=== PATIENT | male | born 1985 | race Caucasian/White ===

== ENCOUNTER 2024-11-18 04:40 | Emergency (ER) | payer OTHER, SELFPAY ==
[2024-11-18 04:41] VITALS: BP 150/101; BP 170/94; PULSE 93; PULSE 95; RESP 15; RESP 16; TEMP 36.6; O2SAT 96; BMI 33.0
--- NOTE | 2024-11-18 05:04 | EKG12_ITS ---
Test Reason : CP Blood Pressure : */* mmHG Vent. Rate : 97 BPM Atrial Rate : 97 BPM P-R Int : 124 ms QRS Dur : 88 ms QT Int : 350 ms P-R-T Axes : 45 43 24 degrees QTcB Int : 444 ms Normal sinus rhythm Normal ECG Confirmed by Eduardo Tyson ([id number]), commissioning editor ALIYA GAMBLE ([id number]) on 11/24/2024 11:28:01 AM Referred By: WHITLEY Confirmed By: Eduardo Tyson
--- NOTE | 2024-11-18 05:13 | RAD_ITS ---
PROCEDURE: CHEST PA AND LATERAL 11/18/2024 REASON FOR EXAM: CHEST PAIN TECHNIQUE: Frontal and lateral views of the chest. COMPARISON: None available FINDINGS: Patchy airspace opacity at the left mid to lower lung with associated small effusion. The right lung appears clear. The cardiac and mediastinal contours appear within limits. Visualized osseous structures appear within limits. RAD/Chest PA and Lateral IMPRESSION: Patchy airspace opacity at the left mid to lower lung with associated small eff usion. May be inflammatory or infectious, clinically correlate Reading Location: [id number]
[2024-11-18 05:21] LABS: Absolute Lymphocyte Count 2.08 X10^3/uL (0.83-4.51); Absolute Neutrophil Count 4.9 X10^3/uL (2.0-7.7); Basophil# 0.09 X10^3/uL; Eosinophil# 1.01 X10^3/uL; Eosinophils% 11.6 % (0-5); Hematocrit 45.4 % (40-54); Hemoglobin 15.5 g/dL (13.0-16.5); Lymphocyte # 2.08 X10^3/ul (0.83-4.51); Lymphocyte % 23.9 % (19-41); Mean Corp Hgb Conc 34.1 g/dL (32-36); Mean Corpuscular Hgb 27.6 pg (27.0-32.0); Mean Corpuscular Volume 80.8 fL (80-94); Mean Platelet Vol. 8.5 fl (6.2-12.0); Monocyte# 0.59 X10^3/uL; Monocyte% 6.8 % (0-10); NRBC Flagged by Analyzer 0 % (0-5); Neutrophil # 4.91 X10^3/uL (2.7-7.7); Neutrophil % 56.2 % (47-70); Platelet Count 353 K/mm3 (150-450); RBC Distribution Width CV 12.6 % (11.6-14.6); RBC Distribution Width SD 36.9 fl (35.1-43.9); Red Blood Count 5.62 M/mm3 (4.6-6.2); White Blood Count 8.7 K/mm3 (4.4-11.0)
[2024-11-18 05:39] LABS: AST(SGOT) 16 U/L (<=37); Alanine Aminotransfer ALT/SGPT 17 U/L (<=46); Albumin, Serum 3.9 g/dL (3.5-5.0); Alkaline Phosphatase 68 U/L (40-129); Anion Gap 11 (5-15); BUN 19 mg/dL (4-19); BUN/Creat Ratio 22.5 RATIO (10-20); Bilirubin, Direct 0.18 mg/dL (0.00-0.30); Calcium,Total 8.8 mg/dL (7.6-11.0); Carbon Dioxide 24.6 mmol/L (21.0-32.0); Chloride 103 mmol/L (98-108); Creatinine, Serum 0.86 mg/dL (0.70-1.20); EST Glomerular Filtration Rate 112 (>60); Globulin 2.9 g/dL (2.2-4.2); Glucose 108 mg/dL (70-99); Lipase 27 U/L (13-75); Potassium 3.7 mmol/L (3.3-5.1); Protein, Total 6.8 g/dL (5.9-8.4); Sodium Level 138 mmol/L (133-145); Total Bilirubin 0.38 mg/dL (0.00-1.30); Troponin T High Sensitivity 7 ng/L (<=22)
[2024-11-18 05:41] VITALS: BP 137/98; PULSE 87; RESP 18; O2SAT 97
--- NOTE | 2024-11-18 05:56 | CT_ITS ---
PROCEDURE: CTA CHEST W/WO CONTRAST 11/18/2024 REASON FOR EXAM: CHEST PAIN WITH ELEVATED D-DIMER TECHNIQUE: CTA imaging of the chest with intravenous contrast. Multiplanar and multisequence images were obtained. Coronal and sagittal MIP images CONTRAST: 85 cc Isovue 370 IV One or more dose reduction techniques were used (e.g., Automated exposure control, adjustment of the mA and/or kV according to patient size, use of iterative reconstruction technique). RADIATION DOSE SUMMARY: CTDlvol: 15.78 mGy DLP: 489.52 mGycm COMPARISON: None available FINDINGS: Motion artifact. No evidence of filling defect to suggest pulmonary embolism. Thoracic aorta appears within limits. No pericardial or right pleural effusion. No adenopathy identified. The central airways appear patent. Patchy bandlike areas of parenchymal opacity and ground-glass opacity left lung with a lower zone predominance may be inflammatory or infectious. A moderate left pleural effusion is present. The right lung appears clear. Limited images of the upper abdomen appear within limits. Visualized osseous structures appear within limits. CT/CTA Chest W/WO Contrast IMPRESSION: Motion artifact. No evidence of filling defect to suggest pulmonary embolism. Patchy bandlike areas of parenchymal opacity and ground-glass opacity left lung with a lower zone predominance may be inflammatory or infectious. A moderate left pleural effusion is present. Reading Location: [id number]
[2024-11-18 06:00] VITALS: BP 139/98; PULSE 90; RESP 16; O2SAT 94
[2024-11-18 06:10] LABS: Prothrombin Time (Protime)PT. 12.9 SECONDS (11.7-14.9)
[2024-11-18 06:11] LABS: Partial Thromboplast Time 28.7 Seconds (24.1-36.2)
[2024-11-18 07:00] VITALS: BP 134/85; PULSE 92; RESP 16; O2SAT 94
--- NOTE | 2024-11-18 07:04 | EDS_ITS ---
HPI History of Present Illness Chief Complaint: Chest Pain Informant: patient and spouse/S.O. Narrative Narrative: Patient is a 39-year-old male who reports no significant past medical history. He states starting about 2 weeks ago he developed mild congestion and cough. He reports that the cough has slightly improved but has not completely resolved. He states it does not make him feel short of breath or keep him from performing his daily activities. He states however in the last 5 to 7 days he has now noticed a vague left-sided chest discomfort. He states that during the day when he is active and occupied with daily activities he does not notice the symptoms. However in the last 24 hours he feels that the symptoms have become more severe and persistent and with concern this could be potential cardiac or lung pathology he presents for evaluation [facility] Medical History no medical history no medical history Home Medications ?Medication ?Instructions ?Recorded ?Last Taken ?Type azithromycin 250 mg tablet See Rx Instructions PO .COM PLEX #6 11/18/24 Unknown Rx (Zithromax Z-Clint) tabs doxycycline hyclate 100 mg capsule 100 mg PO BID 10 da ys #20 caps 11/18/24 Unknown Rx Allergy/AdvReac Type Severity Reaction Status Date / Time No Known Allergies Allergy Verified 11/18/24 04:41 Family History (Updated 11/18/24 @ 04:53 by Caitlin Priest) Father A-fib Brother A-fib Social History (Updated 11/18/24 @ 04:53 by Caitlin Priest) household members: spouse and children housing: house number of children: 4 Smoking Status: Never smoker ROS ROS ED Constitutional Constitutional ED: Denies chills or fever(s) Eyes Eyes: Denies blurry vision or change in vision ENT ENT ED: Denies rhinorrhea or sore throat Cardiovascular Cardiovascular: Reports chest pain; Denies palpitations or racing heartbeat Respiratory/Chest Respiratory/Chest: Reports cough; Denies dyspnea Gastrointestinal Gastrointestinal: Denies abdominal pain, diarrhea, nausea or vomiting Genitourinary Genitourinary ED: Denies dysuria or hematuria Musculoskeletal Musculoskeletal: Reports back pain Integumentary Denies rash Neurologic Neurologic: Denies headache(s) Hematologic/Lymphatic Hematologic/Lymphatic: Denies easy bleeding or easy bruising EXAM Physical Exam Const Vital Signs: 11/18/24 04:41 11/18/24 04:41 11/18/24 04:49 Temperature 97.8 F Temperature Source Oral Pulse Rate 95 93 Respiratory Rate 15 16 Respiratory Effort Non-Labored Blood Pressure 170/94 H 150/101 H Blood Pressure Mean 119 117 Pulse Ox 96 96 Oxygen Delivery Method Room Air Room Air 11/18/24 05:41 11/18/24 06:00 Temperature Temperature Source Pulse Rate 87 90 Respiratory Rate 18 16 Respiratory Effort Blood Pressure 137/98 H 139/98 H Blood Pressure Mean 111 111 Pulse Ox 97 94 Oxygen Delivery Method Room Air Room Air Positive well nourished and well developed General Appearance ED: well developed; Negative for pallor HEENT HEENT Narrative: Normocephalic atraumatic No tongue or lip swelling no oral lesions no airway edema or compromise Eyes PERRL and EOMs intact bilaterally General Eye ED: Negative for scleral icterus Neck supple and no JVD Chest Wall Chest Narrative: There is mild reproducible left chest wall pain with palpation No bony deformity or subcutaneous emphysema noted No overlying soft tissue changes to suggest trauma or infection Resp normal respiratory effort Resp Narrative: Breath sounds are diminished in the left lower lobe. There is rhonchi present at this site as well No nasal flaring retractions tachypnea or accessory muscle use Cardio regular rate and regular rhythm Rate: other Other Details: Heart is regular rate and rhythm without murmurs rubs or gallops Radial and carotid pulses are equal and symmetric GI normal to inspection, nondistended, normoactive bowel sounds, non-tender, non- distended and no masses Auscultation: normoactive bowel sounds Palpation: soft Back/Spine no CVA tenderness Extremity normal to inspection Extremity Narrative: No asymmetric edema no pitting edema negative Homans' sign bilaterally Neuro oriented x3, CN's II-XII intact bilaterally and no sensory deficits noted Sensorium / Orientation: alert Motor Exam: strength 5/5 throughout Psych mental status grossly normal Skin no rashes or lesions noted and no wounds General Skin Exam: Negative for jaundice or pallor MDM MDM MDM Narrative Medical decision making narrative: Patient arrived to ER hypertensive otherwise with stable vitals. He reported he had cough for roughly 2 weeks with now increasing left-sided chest pain. Symptoms are concerning for developing pneumonia versus pneumothorax versus pleural effusion versus atypical presentation for ACS. Secondary to this basic blood work was obtained. White count is normal there is no left shift. His initial and delta troponin are normal as well with no clinically significant change to the delta troponin going against ACS. EKG also shows no signs of ischemia or cardiac dysrhythmia. As patient does report some increased pain with inspiration I did elect to perform a D-dimer secondary to concern for PE versus dissection. The D-dimer was elevated so CTA was obtained. The CTA re vealed a pleural effusion with surrounding findings concerning for infection versus inflammation. As the patient states his symptoms began with cough roughly 2 weeks ago I do have concern that this is a infection. Therefore he will be placed on antibiotics. As a workup does not show signs of PE or dissection or pneumothorax and workup also does not indicate his chest discomfort is related to ACS I do not feel there is need for further workup. As he is not hypoxic or in respiratory distress as he does not have findings of systemic infection such as leukocytosis or left shift fever or hypotension I do not feel he warrants inpatient evaluation for these findings on the chest x- ray/CT scan. Therefore he will be prescribed antibiotics and can follow-up with pulmonology to discuss need for potential thoracentesis or bronchoscopy to further evaluate his symptoms if they do not resolve with antibiotic treatment. This plan of care was discussed with the patient who is agreeable to it and as vitals have improved and he remains in no acute respiratory stress is otherwise safe for discharge History & Record Review Discussion w/independent historian: Patient and Significant other Lab Data Attestation: I reviewed the patient's lab results. Labs: Laboratory Results - last 24 hr 11/18/24 05:00 WBC 8.7 RBC 5.62 Hgb 15.5 Hct 45.4 MCV 80.8 MCH 27.6 MCHC 34.1 RDW Std Deviation 36.9 RDW Coeff of Javier 12.6 Plt Count 353 MPV 8.5 Immature Gran % (Auto) 0.500 Neut % (Auto) 56.2 Lymph % (Auto) 23.9 Bourbon % (Auto) 6.8 Eos % (Auto) 11.6 H Baso % (Auto) 1.0 Absolute Neuts (auto) 4.9 Absolute Lymphs (auto) 2.08 Nucleated RBC % 0 PT 12.9 INR 1.0 APTT 28.7 D-Dimer Quant (PE/DVT) 1.50 H* Sodium 138 Potassium 3.7 Chloride 103 Carbon Dioxide 24.6 Anion Gap 11 BUN 19 Creatinine 0.86 Estim Creat Clear Calc 136.80 Est GFR (MDRD) Non-Af 112 BUN/Creatinine Ratio 22.5 H Glucose 108 H Calcium 8.8 Total Bilirubin 0.38 Direct Bilirubin 0.18 AST 16 ALT 17 Alkaline Phosphatase 68 Troponin T High Sens 7 Total Protein 6.8 Albumin 3.9 Globulin 2.9 Lipase 27 Radiography Diagnostic Testing: Clinical Impression(s) from Imaging Studies Chest X-Ray 11/18/24 05:13 IMPRESSION: Patchy airspace opacity at the left mid to lower lung with associated small effusion. May be inflammatory or infectious, clinically correlate Reading Location: [facility] Chest CTA 11/18/24 05:56 IMPRESSION: Motion artifact. No evidence of filling defect to suggest pulmonary embolism. Patchy bandlike areas of parenchymal opacity and ground-glass opacity left lung with a lower zone predominance may be inflammatory or infectious. A moderate left pleural effusion is present. Reading Location: [facility] Chest x-ray is interpreted by the emergency medicine physician reveals opacity in the left lower lung concerning for infection Discharge Plan Triage Chief Complaint: Chest Pain ED Provider: Mickey Ward Dx/Rx/DC Orders Clinical Impression: Pleural effusion, Left lower lobe pneumonia, Hypertension Instructions: ED Pleural Effusion, ED Pneumonia (Adult) Prescriptions: New azithromycin [Zithromax Z-Clint] 250 mg tablet See Rx Instructions .ROUTE .COMPLEX Qty: 6 0RF Rx Instructions: For 250 mg dose pack: take 500 mg today (day 1), then 250 mg for 4 days (days 2-5) doxycycline hyclate 100 mg capsule 100 mg PO BID 10 Days Qty: 20 0RF Primary Care Provider: Care Physician,No Primary Referrals: Donny Bunch DO [Med Staff - Active Staff] - (Pleural effusion) Care Physician,No Primary [Primary Care Provider] - Activity Restrictions/Additional Instructions: Please take the antibiotic as directed to cover for potential infection as a cause of your symptoms. Follow-up pulmonology for further evaluation of your pleural effusion and for potential thoracentesis if needed. If you develop a fever or have worsening shortness of breath or any further concerns return to the ER for repeat evaluation Print Language: Citizen Of [place] Disposition Disposition: Home, Self Care Discharge Date/Time: 11/18/24 07:51
[2024-11-18] MEDS: Doxycycline 100 MG CAPSULE PO (07:09)
[2024-11-18] MEDS: Azithromycin 250 MG Tablet 500 MG PO (07:09)
[2024-11-18 07:42] LABS: Troponin T High Sens 2 HR 9 ng/L (<=22)
[2024-11-18 07:47] VITALS: BP 143/91; PULSE 91; RESP 19; TEMP 36.5; O2SAT 99
== END 2024-11-18 07:51 | disposition home or self-care (01) ==
PROVIDERS: Emergency Provider Emergency Medicine; Visit Provider Emergency Medicine
DX: J18.9 Pneumonia, unspecified organism (principal); J90 Pleural effusion, not elsewhere classified; R07.9 Chest pain, unspecified
CPT/HCPCS: 71046; 71275; 80048; 80076; 83690; 84484; 85025; 85379; 85610; 85730; 93005; 99283; Q9967; A4216

== ENCOUNTER → 2024-12-23 | Outpatient (CLI) | payer SELFPAY, OTHER ==
--- NOTE | 2024-12-23 16:25 | CT_ITS ---
PROCEDURE: CHEST WITHOUT CONTRAST 12/23/2024 REASON FOR EXAM: PLEURAL EFFUSION TECHNIQUE: Chest CT without contrast. Coronal and Sagittal reconstruction series were provided. One or more dose reduction techniques were used (e.g., Automated exposure control, adjustment of the mA and/or kV according to patient size, use of iterative reconstruction technique RADIATION DOSE SUMMARY: CTDlvol: 19 mGy DLP: 688 mGycm COMPARISON: 11/18/2024 FINDINGS: Central airways are patent. There is a persistent moderate left effusion small interval improvement. Adjacent compressive atelectasis. On the left, small areas of band atelectasis, partial interval improvement. On the right, fairly well inflated lung. No consolidation. No pneumothorax. Unremarkable base of neck and axilla. Thoracic spine scoliosis and degeneration. Normal esophagus. Normal heart size. No acute vascular pathology. No acute chest wall findings. No acute upper abdominal findings. CT/Chest without Contrast IMPRESSION: Small interval improvement in moderate left effusion. Improving overall left l abdiaziz aeration. There is no new chest pathology. Reading Location: [place] [id number]
--- NOTE | 2024-12-23 16:25 | CT_ITS ---
PROCEDURE: CHEST WITHOUT CONTRAST 12/23/2024 REASON FOR EXAM: PLEURAL EFFUSION TECHNIQUE: Chest CT without contrast. Coronal and Sagittal reconstruction series were provided. One or more dose reduction techniques were used (e.g., Automated exposure control, adjustment of the mA and/or kV according to patient size, use of iterative reconstruction technique RADIATION DOSE SUMMARY: CTDlvol: 19 mGy DLP: 688 mGycm COMPARISON: 11/18/2024 FINDINGS: Central airways are patent. There is a persistent moderate left effusion small interval improvement. Adjacent compressive atelectasis. On the left, small areas of band atelectasis, partial interval improvement. On the right, fairly well inflated lung. No consolidation. No pneumothorax. Unremarkable base of neck and axilla. Thoracic spine scoliosis and degeneration. Normal esophagus. Normal heart size. No acute vascular pathology. No acute chest wall findings. No acute upper abdominal findings. CT/Chest without Contrast IMPRESSION: Small interval improvement in moderate left effusion. Improving overall left l abdiaziz aeration. There is no new chest pathology. Reading Location: [place] [id number]
== END | disposition home or self-care (01) ==
LOC: CT 16:22
PROVIDERS: Referring Provider Internal Medicine Critical Care Medicine; Visit Provider Internal Medicine Critical Care Medicine
DX: J90 Pleural effusion, not elsewhere classified (principal)
CPT/HCPCS: 71250

== ENCOUNTER → 2024-12-24 | Outpatient (CLI) | payer OTHER, SELFPAY ==
[2024-12-24 13:28] LABS: Platelet Count 279 K/mm3 (150-450)
[2024-12-24 13:39] LABS: Prothrombin Time (Protime)PT. 13.3 SECONDS (11.7-14.9)
[2024-12-24 13:40] LABS: Partial Thromboplast Time 26.1 Seconds (24.1-36.2)
[2024-12-24 14:01] LABS: LDH 198 U/L (87-241)
== END | disposition home or self-care (01) ==
LOC: LAB 12:30
PROVIDERS: Referring Provider Internal Medicine Critical Care Medicine; Visit Provider Internal Medicine Critical Care Medicine
DX: J90 Pleural effusion, not elsewhere classified (principal)
CPT/HCPCS: 36415; 83615; 85049; 85610; 85730

== ENCOUNTER → 2024-12-25 | Outpatient (CLI) | payer OTHER, SELFPAY ==
[2024-12-25 08:43] VITALS: BP 129/84; PULSE 86; RESP 16; O2SAT 97
[2024-12-25] MEDS: Lidocaine 2% (20 ml mdv) 20 ML Vial INFILT (08:48)
[2024-12-25 08:54] VITALS: BP 140/78; PULSE 81; RESP 16; O2SAT 97
[2024-12-25 09:00] VITALS: BP 113/73; PULSE 70; RESP 16; O2SAT 96
[2024-12-25 09:04] VITALS: BP 120/72; PULSE 80; RESP 16; O2SAT 97
[2024-12-25 09:32] LABS: Cytology, Body Fluid / CSF SEE PATHOLOGY REPORT
[2024-12-25 10:14] LABS: Body Fluid Mononuclear WBC # 0.062 10^3/uL; Body Fluid Mononuclear WBC % 92.5 %; Body Fluid Polynuclear WBC # 0.005 10^3/uL; Body Fluid Polynuclear WBC % 7.5 %; White Blood Count/Body Fluid 0.067 10^3/uL
[2024-12-25 10:44] LABS: Glucose, Body Fluid 117 mg/dL (Not Establ.)
[2024-12-25 10:46] LABS: Neutrophil (Segs) 8 %
[2024-12-25 10:49] LABS: Auto B Fluid Analyzer BKGD Ct COUNTS W/IN LIMITS (W/IN LIMITS)
[2024-12-25 10:50] LABS: Color/Body Fluid YELLOW; Source- Body Fluid PLEURAL FLUID
[2024-12-25 10:51] LABS: Appearance/Body Fluid CLOUDY; Body Fluid QC Type(s) BF1Q; Red Cell Count/Body Fluid 2985 /mm3
[2025-01-01 09:03] LABS: Pathologist Comment/Body Fluid Reviewed
== END | disposition home or self-care (01) ==
PROVIDERS: Referring Provider Internal Medicine Critical Care Medicine; Visit Provider Internal Medicine Critical Care Medicine
DX: J90 Pleural effusion, not elsewhere classified (principal)
CPT/HCPCS: 32555; 82945; 83615; 84157; 87070; 87075; 87205; 88108; 88305; 88313; 89050

== ENCOUNTER → 2025-01-14 | Outpatient (CLI) | payer OTHER, SELFPAY ==
--- NOTE | 2025-01-14 14:50 | RAD_ITS ---
PROCEDURE: CHEST PA AND LATERAL 01/14/2025 REASON FOR EXAM: PLEURAL EFFUSION TECHNIQUE: CHEST PA AND LATERAL COMPARISON: 11/18/2024 FINDINGS: Mild scoliosis. Normal heart size. There is left-sided pleural thickening but resolving effusion. Slight under aeration of the left lung base, but interval improved aeration in the left mid and lower lung zone. Right lung is well inflated and clear. RAD/Chest PA and Lateral IMPRESSION: Slight residual under aeration at the left lung base but significantly improved left lung aeration. Reading Location: [facility]
[2025-01-16 14:09] LABS: Anti-Chromatin <0.2 AI (0.0-0.9); Anti-Jo <0.2 AI (0.0-0.9); Anti-dsDNA Ab 3 IU/mL (0-9); SJOGREN'S Anti-SS-A test < 0.2 AI (0.0-0.9); SJOGREN'S Anti-SS-B test < 0.2 AI (0.0-0.9)
[2025-01-16 16:09] LABS: Cytoplasmic Ab (C-ANCA) <1:20 titer (Neg:<1:20); Immunoglobulin G 1006 mg/dL (603-1613); Perinuclear Ab (P-ANCA) <1:20 titer (Neg:<1:20)
== END | disposition home or self-care (01) ==
PROVIDERS: PCP Family Medicine; Referring Provider Nurse Practitioner Acute Care; Visit Provider Nurse Practitioner Acute Care
DX: J90 Pleural effusion, not elsewhere classified (principal)
CPT/HCPCS: 36415; 71046; 82784; 86037; 86200; 86225; 86235; 86431

== ENCOUNTER → 2025-02-06 | Outpatient (CLI) | payer SELFPAY, OTHER ==
--- NOTE | 2025-02-06 14:47 | CT_ITS ---
PROCEDURE: CT ORB SELLA POST FOSSA EAR W/O 02/06/2025 REASON FOR EXAM: METALLIC FOREIGN BODY L ORBIT ON XRAY/CT FOR LOCATION/R/O INTRAOC TECHNIQUE: CT ORB SELLA POST FOSSA EAR W/O. Multiplanar 2D reformats were performed. One or more dose reduction techniques were used (e.g., Automated exposure control, adjustment of the mA and/or kV according to patient size, use of iterative reconstruction technique). RADIATION DOSE SUMMARY: CTDlvol: 29.38 mGy DLP: 393.19 mGycm COMPARISON: None. FINDINGS: There is a small metallic foreign body in the preseptal left periorbital soft tissues at the lateral aspect of the left globe (see crabtree images). Mild localized preseptal periorbital soft tissue swelling/edema, and small foci of superficial subcutaneous gas. The globes appear intact. Clear retrobulbar fat planes. Additionally there is a similar small subcutaneous metallic foreign body in the right pre maxillary facial soft tissues, with mild localized subcutaneous edema. No acute maxillofacial bone fracture. No fluid in the paranasal sinuses. Mild mucosal thickening in the floors of bilateral maxillary sinuses. Visualized bilateral mastoid air cells are clear. CT/Orb Sella Post Fossa Ear w/o IMPRESSION: Small metallic subcutaneous foreign bodies in the lateral left preseptal perior bital soft tissues, and right premaxillary facial soft tissues. No evidence of acute globe injury. Reading Location: [id number]
== END | disposition home or self-care (01) ==
PROVIDERS: PCP Family Medicine; Referring Provider Ophthalmology; Visit Provider Ophthalmology
DX: H05 Disorders of orbit (principal)
CPT/HCPCS: 70480

== ENCOUNTER → 2025-02-06 | Outpatient (CLI) | payer SELFPAY, OTHER ==
--- NOTE | 2025-02-06 12:45 | RAD_ITS ---
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 RAD/Skull less than 4 Views IMPRESSION: Punctate radiopacity seen overlying the lateral midportion of the left orbit. Foreign body should be ruled out with the patient's history Reading Location: [facility]
== END | disposition home or self-care (01) ==
PROVIDERS: PCP Family Medicine; Referring Provider Ophthalmology; Visit Provider Ophthalmology
DX: S05.90XA Unspecified injury of unspecified eye and orbit, initial encounter (principal)
CPT/HCPCS: 70250